=== PATIENT | male | born 1990 | race Caucasian/White ===

== ENCOUNTER → 2017-12-01 | Outpatient (CLI) | payer MEDICAID | END | disposition home or self-care (01) | LOC: CFH 08:22 | PROVIDERS: ATTEND Nurse Practitioner Family | DX: M48.07 Spinal stenosis, lumbosacral region (principal); M51.27 Other intervertebral disc displacement, lumbosacral region; M47.896 Other spondylosis, lumbar region | CPT/HCPCS: 72148 ==

== ENCOUNTER 2019-12-24 02:19 | Emergency (ER) | payer MEDICAID ==
[~2019-12-24] VITALS: Ht 177.8 cm; Wt 65.0 kg
[2019-12-24 05:00] VITALS: BP 114/64
--- NOTE | 2019-12-24 05:53 | NUR ---
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 Patient alert and oriented and steady on his feet when ambulating. MD aware and patient is ready for discharge.
== END 2019-12-24 06:06 | disposition home or self-care (01) ==
LOC: ED 02:49
DX: F19.920 Other psychoactive substance use, unspecified with intoxication, uncomplicated (principal); R40.1 Stupor
CPT/HCPCS: 93005; 99283